=== PATIENT | male | born 1940 | race Caucasian/White ===

== ENCOUNTER → 2017-05-21 | Outpatient (CLI) | payer MEDICARE, BC | END | disposition home or self-care (01) | LOC: PCVCCLINIC 13:30 | PROVIDERS: ATTEND Internal Medicine | DX: I25.10 Atherosclerotic heart disease of native coronary artery without angina pectoris (principal); I25.5 Ischemic cardiomyopathy; I11.0 Hypertensive heart disease with heart failure; I50.22 Chronic systolic (congestive) heart failure; I48.0 Paroxysmal atrial fibrillation; E78.5 Hyperlipidemia, unspecified; I65.23 Occlusion and stenosis of bilateral carotid arteries; I73.9 Peripheral vascular disease, unspecified; Z87.891 Personal history of nicotine dependence; Z79.82 Long term (current) use of aspirin; Z79.899 Other long term (current) drug therapy | CPT/HCPCS: 80061; 93005; G0463 ==

== ENCOUNTER → 2018-08-26 | Outpatient (CLI) | payer MEDICARE ==
--- NOTE | 2018-08-26 09:45 | PCVCIMAG ---
APPROVED REPORT Indications Stenosis Risk Factors Hypertension: Hyperlipidemia Surgery/Intervention Endarterectomy: right Doppler Spectral Velocity Analysis PSV / EDVPSV / EDV ECA (R) 227 / 0 cm/sECA (L) 334 / 0 cm/s dICA (R) 62 / 17 cm/sdICA (L) 108 / 22 cm/s Dax (R) 76 / 18 cm/smICA (L) 135 / 32 cm/s pICA (R) 65 / 13 cm/spICA (L) 222 / 44 cm/s Bulb (R) 133 / 13 cm/sBulb (L) 194 / 27 cm/s dCCA (R) 112 / 5 cm/sdCCA (L) 135 / 19 cm/s mCCA (R) 139 / 19 cm/smCCA (L) 110 / 19 cm/s Vert (R) 36 / 35 cm/sVert (L) 188 / 38 cm/s ICA/CCA 0.68ICA/CCA 1.64 Basic Measurements Blood Pressure: Pulses: Right Left RightLeft Brachial(Sitting) 88/32scOl141/72mmHgTemporal Real Time B-Mode Imaging Vert. (R)IntermittentVert. (L)Antegrade Findings The right carotid bulb has moderately severe calcified plaque. The right proximal internal carotid artery shows no significant stenosis. The right common carotid artery shows 40-50% stenosis. The right external carotid artery shows no significant stenosis. The left carotid bulb has moderately severe calcified plaque. The left proximal internal carotid artery shows 60-70% stenosis. The left common carotid artery shows 40-50% stenosis. The left external carotid artery shows >90% stenosis. Conclusion 1. Bilateral common carotid artery stenoses (40-50%) 2. Left internal carotid artery plaquing; prior carotid endarterectomy 3. Left internal carotid artery stenosis (60-70%) 4. Biphasic right vertebral flow. Antegrade left vertebral flow. Similar to November 2015
--- NOTE | 2018-08-26 10:04 | PCVCIMAG ---
APPROVED REPORT Study performed: 08/26/2018 09:08:39 EXAM: Comprehensive 2D, Doppler, and color-flow Echocardiogram Patient Location: Echo lab Status: routine BSA: 1.74 HR: 68 bpmBP: 122/70 mmHg Rhythm: NSR Other Information Study Quality: Good Risk Factors: Cardiac Risk Factors: HTN, Hyperlipidemia, Smoking Indications CAD Cardiomyopathy Hypertension/HDD CABG, Carotid stenosis 2D Dimensions IVSd: 13.34 (7-11mm)LVOT Diam: 19.77 (18-24mm) LVDd: 47.53 mm PWd: 8.33 (7-11mm)Ascending Ao: 28.42 (22-36mm) LVDs: 41.60 (25-40mm) Left Atrium: 43.42 (27-40mm) Aortic Root: 24.15 mm LV Single Plane 4CH: 43.59 % LV Single Plane 2CH: 34.12 % Biplane EF: 38.4 % Volumes Left Atrial Volume (Systole) Single Plane 4CH: 35.98 mLSingle Plane 2CH: 55.12 mL LA ESV Index: 26.00 mL/m2 Aortic Valve AoV Peak Pb.: 1.19 m/s AO Peak Gr.: 5.68 mmHgLVOT Max P.71 mmHg LVOT Max V: 0.65 m/s GIL Vmax: 1.69 cm2 Mitral Valve E/A Ratio: 0.8 MV Decel. Time: 178.32 ms MV E Max Pb.: 0.91 m/s MV A Pb.: 1.19 m/s IVRT: 110.73 ms TDI E/Lateral E': 15.17E/Medial E': 30.33 Medial E' Pb.: 0.03 m/s Lateral E' Pb.: 0.06 m/s Pulmonary Valve PV Peak Gr.: 1.43 mmHg Pulmonary Vein P Vein S: 0.39 m/sP Vein A: 0.29 m/s P Vein D: 0.54 m/sP Vein A Dur.: 93.4 msec P Vein S/D Ratio: 0.72 Tricuspid Valve TR Peak Pb.: 3.36 m/s TR Peak Gr.: 45.15 mmHg Left Ventricle The left ventricle is normal size. There is normal left ventricular wall thickness. Left ventricular systolic function is moderately decreased. Inferior and inferolateral hypokinesis. LVEF is 40-45%. Mild diastolic dysfunction is present (impaired relaxation pattern). Right Ventricle The right ventricle is normal size. The right ventricular systolic function is normal. Atria The left atrium size is normal. The right atrium size is normal. Aortic Valve The aortic valve is trileaflet, mildly sclerotic. No aortic regurgitation is present. There is no aortic valvular stenosis. Mitral Valve Mitral valve leaflets are moderately thickened. Moderate mitral regurgitation. No evidence of mitral valve stenosis. Tricuspid Valve The tricuspid valve is normal in structure. Trace tricuspid regurgitation. Pulmonary artery pressure is 55 mmHg. Pulmonic Valve The pulmonary valve is normal in structure. Trace pulmonic regurgitation. Great Vessels The aortic root is normal in size. IVC is normal in size and collapses >50% with inspiration. Pericardium There is no pericardial effusion. <Conclusion> Left ventricular systolic function is moderately decreased. Inferior and inferolateral hypokinesis. LVEF is 40-45%. Mild diastolic dysfunction The aortic valve is trileaflet, mildly sclerotic. No aortic regurgitation or stenosis Mitral valve leaflets are moderately thickened. Moderate mitral regurgitation. Trace tricuspid regurgitation. Pulmonary artery pressure is 55 mmHg. There is no pericardial effusion.
== END | disposition home or self-care (01) ==
LOC: PCVCIMAG 08:26
PROVIDERS: ATTEND Internal Medicine
DX: I65.23 Occlusion and stenosis of bilateral carotid arteries (principal); I08.0 Rheumatic disorders of both mitral and aortic valves; E78.5 Hyperlipidemia, unspecified; R94.31 Abnormal electrocardiogram [ECG] [EKG]; I25.5 Ischemic cardiomyopathy; I11.0 Hypertensive heart disease with heart failure; I50.22 Chronic systolic (congestive) heart failure; I48.0 Paroxysmal atrial fibrillation; I73.9 Peripheral vascular disease, unspecified; Z95.1 Presence of aortocoronary bypass graft; Z87.891 Personal history of nicotine dependence; Z88.8 Allergy status to other drugs, medicaments and biological substances; Z79.82 Long term (current) use of aspirin; Z79.899 Other long term (current) drug therapy
CPT/HCPCS: 36415; 80061; 93005; 93306; 93880; G0463